=== PATIENT | female | born 1975 | race Caucasian/White ===

== ENCOUNTER 2021-07-01 09:42 | Emergency (ER) | payer BC, SELFPAY ==
--- NOTE | 2021-07-01 09:46 | ECG_ITS ---
Test Reason : palpitations Blood Pressure : / mmHG Vent. Rate : 089 BPM Atrial Rate : 089 BPM P-R Int : 138 ms QRS Dur : 082 ms QT Int : 368 ms P-R-T Axes : 054 015 023 degrees QTc Int : 447 ms Normal sinus rhythm Normal ECG No previous ECGs available Referred By: Generic ED Physician Electronically Signed By:HECTOR BANGURA MD
[2021-07-01 10:10] VITALS: BP 143/82; PULSE 96; RESP 18; TEMP 36.8; O2SAT 100; BMI 36.6
== END 2021-07-01 15:10 | disposition left against medical advice (07) ==
LOC: HO.ED 15:09
PROVIDERS: Emergency Provider Emergency Medicine; PCP Pediatrics
DX: R00.2 Palpitations (principal)
CPT/HCPCS: 93005; 99282; 99283

== ENCOUNTER 2022-07-26 12:01 | Emergency (ER) | payer BC, SELFPAY ==
--- NOTE | ~2022-07-26 | XR_ITS ---
EXAMINATION: XR CHEST CLINICAL INFORMATION: SOB COMPARISON: None TECHNIQUE: 2 views of the chest were obtained. FINDINGS: The lungs are well-expanded and clear of acute process. The heart size and pulmonary vascularity is normal. There is moderate ventral spondylosis dorsal spine. There is mild levoscoliosis. No aggressive lytic or sclerotic process seen. XR/XR chest 2V IMPRESSION: 1. No acute cardiopulmonary process seen. 2. Mild levoscoliosis.
[2022-07-26 12:07] VITALS: BP 157/98; PULSE 129; RESP 22; TEMP 36.4; O2SAT 100; BMI 35.4
--- NOTE | 2022-07-26 12:07 | ED_ITS ---
HPI - URI/Sore Throat General Chief Complaint: Asthma <Diamante Galloway NP - Last Filed: 07/26/22 12:11> Stated Complaint: Asthma sent by PCP <Diamante Galloway NP - Last Filed: 07/26/22 12:11> Time Seen by Provider: 07/26/22 12:14 <Diamante Galloway NP - Last Filed: 07/26/22 12:11> Source: patient <MARY ANNE Delgado - Last Filed: 07/26/22 14:26> Mode of arrival: ambulatory <MARY ANNE Delgado - Last Filed: 07/26/22 14:26> Limitations: no limitations <MARY ANNE Delgado - Last Filed: 07/26/22 14:26> History of Present Illness HPI Narrative: Patient is a 47 year old assigned female at with a history of asthma presenting to the emergency department today with wheezing. Patient states that over the last couple of days she has noticed that her wheezing has gotten worse. Patient states that she has used her inhaler at home but it hasn't helped. Patient denies any dizziness, lightheadedness, abdominal pain, nausea, vomiting, fever, chills, blurry vision, double vision, loss of vision, chest pain, back pain, night sweats, pain with urination, increased urinary frequency, increased urinary urgency, blood in her urine or stool, syncope or a near syncopal episode, recent trauma or falls, bowel incontinence, bladder incontinence, bowel retention, bladder retention, or any other complaints at this time. <MARY ANNE Delgado - Last Filed: 07/26/22 14:26> Pertinent past history: asthma <MARY ANNE Delgado - Last Filed: 07/26/22 14:26> Onset (ago): day(s) <MARY ANNE Delgado - Last Filed: 07/26/22 14:26> Consistency: intermittent <MARY ANNE Delgado - Last Filed: 07/26/22 14:26> Severity: mild <MARY ANNE Delgado - Last Filed: 07/26/22 14:26> Able to tolerate fluids by mouth: Yes <MARY ANNE Delgado - Last Filed: 07/26/22 14:26> Exacerbating factors: nothing <MARY ANNE Delgado - Last Filed: 07/26/22 14:26> Relieving factors: nothing <MARY ANNE Delgado - Last Filed: 07/26/22 14:26> Associated symptoms: denies other symptoms <MARY ANNE Delgado - Last Filed: 07/26/22 14:26> Treatments prior to arrival: other (inhaler) <MARY ANNE Delgado - Last Filed: 07/26/22 14:26> Related Data Home Medications: Previous Rx's Medication Instructions Recorded prednisone 20 mg tablet 20 mg PO DAILY 7 days #7 tabs 07/26/22 <Diamante Galloway NP - Last Filed: 07/26/22 12:11> Allergies/Adverse Reactions: Allergies Allergy/AdvReac Type Severity Reaction Status Date / Time seafood Allergy Difficulty Verified 07/01/21 10:09 Breathing <Diamante Galloway NP - Last Filed: 07/26/22 12:11> Review of Systems Constitutional: Constitutional: Reports no additional constitutional complaints, Denies chills, Denies fever(s) and Denies night sweats <MARY ANNE Delgado - Last Filed: 07/26/22 14:26> Eyes: Eyes: Reports no additional eye complaints, Denies blurry vision, Denies change in vision, Denies diplopia, Denies eye discharge, Denies loss of vision and Denies eye pain <MARY ANNE Delgado - Last Filed: 07/26/22 14:26> ENT: Denies dizziness <MARY ANNE Delgado - Last Filed: 07/26/22 14:26> Cardiovascular: Cardiovascular: Reports no additional cardiovascular complaints, Denies chest pain, Denies lightheadedness, Denies Loss of Consciousness and Denies dyspnea <MARY ANNE Delgado - Last Filed: 07/26/22 14:26> Respiratory: Respiratory: Reports no additional respiratory complaints, Denies dyspnea and Reports wheezing <MARY ANNE Delgado - Last Filed: 07/26/22 14:26> Gastrointestinal: Gastrointestinal: Reports no additional gastrointestinal complaints, Denies abdominal pain, Denies melena, Denies hematochezia, Denies change in bowel habits and Denies change in stool character <MARY ANNE Delgado - Last Filed: 07/26/22 14:26> Genitourinary: Genitourinary: Denies hematuria, Denies urinary frequency, Denies dysuria, Denies urinary incontinence, Denies urinary hesitancy and Denies urinary urgency <MARY ANNE Delgado - Last Filed: 07/26/22 14:26> Musculoskeletal: Musculoskeletal: Reports no additional musculoskeletal complaints, Denies numbness and Denies tingling <MARY ANNE Delgado - Last Filed: 07/26/22 14:26> Neurologic: Denies dizziness, Denies loss of vision, Denies numbness and Denies tingling <MARY ANNE Delgado - Last Filed: 07/26/22 14:26> Psychiatric: Psychiatric: Reports no additional psychiatric complaints <MARY ANNE Delgado - Last Filed: 07/26/22 14:26> Endocrine: Endocrine: Reports no additional endocrine complaints <MARY ANNE Delgado - Last Filed: 07/26/22 14:26> Hematologic/Lymphatic: Hematologic/Lymphatic: Reports no additional he matologic/lymphatic complaints <MARY ANNE Delgado - Last Filed: 07/26/22 14:26> Allergic/Immunologic: Allergic/Immunologic: Reports no additional allergic/immunologic complaints and Reports wheezing <MARY ANNE Delgado - Last Filed: 07/26/22 14:26> PENDING SALE TO [facility] Past Medical History Attestation statement: The following information was validated with the patient. <MARY ANNE Delgado - Last Filed: 07/26/22 14:26> Source: old records reviewed and nursing notes reviewed <MARY ANNE Delgado - Last Filed: 07/26/22 14:26> Medical History: Medical History Anxiety <Diamante Galloway NP - Last Filed: 07/26/22 12:11> Social History Social History: Social History Advance Directives: No Advance Directives Information Provided: No <Diamante Galloway NP - Last Filed: 07/26/22 12:11> Physical Exam Vital Signs: Vital Signs: Last Vital Signs Temp 97.5 F 07/26/22 12:07 Pulse 92 12/14/22 13:35 Resp 18 07/26/22 13:35 BP 157/98 H 07/26/22 12:07 Pulse Ox 100 07/26/22 12:07 O2 Del Method 07/26/22 12:07 BMI result Body Mass Index 35.4 <Diamante Galloway NP - Last Filed: 07/26/22 12:11> Vital Signs: Last Vital Signs Temp 97.5 F 07/26/22 12:07 Pulse 92 07/26/22 13:35 Resp 18 07/26/22 13:35 BP 157/98 H 07/26/22 12:07 Pulse Ox 100 07/26/22 12:07 O2 Del Method 07/26/22 12:07 BMI result Body Mass Index 35.4 <MARY ANNE Delgado - Last Filed: 07/26/22 14:26> Const: General: cooperative, no acute distress, alert and awake <MARY ANNE Delgado - Last Filed: 07/26/22 14:26> Nutritional Appearance: well nourished <MARY ANNE Delgado - Last Filed: 07/26/22 14:26> Orientation/consciousness: patient oriented x3 <MARY ANNE Delgado - Last Filed: 07/26/22 14:26> Limitations: no limitations <MARY ANNE Delgado - Last Filed: 07/26/22 14:26> HEENT: Head: Yes normal to inspection and Yes atraumatic <MARY ANNE Delgado - Last Filed: 07/26/22 14:26> Ears: hearing grossly normal bilaterally and external ears normal <MARY ANNE Delgado - Last Filed: 07/26/22 14:26> General nose exam: Normal external nose present, no nasal discharge noted and no epistaxis <MARY ANNE Delgado - Last Filed: 07/26/22 14:26> Face and sinus: Yes normal facial exam, No abrasion and No laceration <MARY ANNE Delgado - Last Filed: 07/26/22 14:26> Mouth: Normal oral and palatal mucosa present, no drooling and no muffled voice <MARY ANNE Delgado - Last Filed: 07/26/22 14:26> Eyes: General: appearance normal, both eyes and all related structures <Shabnam Huitron PA - Last Filed: 07/26/22 14:26> Periorbital: periorbital findings normal <Shabnam Huitron NM - Last Filed: 07/26/22 14:26> Eyelids: Yes eyelids normal <Shabnam Huitron PA - Last Filed: 07/26/22 14:26> Conjunctivae: conjunctivae normal <Shabnam Huitron NM - Last Filed: 07/26/22 14:26> Pupils: Equal, round and reactive pupils present <Shabnam Huitron PA - Last Filed: 07/26/22 14:26> EOM: EOMs intact bilaterally <Shabnam Huitron NM - Last Filed: 07/26/22 14:26> Neck: Neck: Yes normal visual inspection, Yes full ROM and Yes no lymphadenopathy <Shabnam Huitron NM - Last Filed: 07/26/22 14:26> Chest: Chest palpation & inspection: normal inspection of the chest <Shabnam Huitron NM - Last Filed: 07/26/22 14:26> Resp: Effort & Inspection: normal respiratory effort and able to speak in complete sentences <Shabnam Huitron NM - Last Filed: 07/26/22 14:26> Auscultation: wheezes throughout <Shabnam Huitron NM - Last Filed: 07/26/22 14:26> Cardio: Rate: regular rate <Shabnam Huitron NM - Last Filed: 07/26/22 14:26> Rhythm: regular rhythm <Shabnam Huitron NM - Last Filed: 07/26/22 14:26> GI: Inspection: Yes normal to inspection <Shabnam Huitron NM - Last F iled: 07/26/22 14:26> Palpation (GI): Soft to palpation, not firm, nontender and no guarding <Shabnam Huitron NM - Last Filed: 07/26/22 14:26> Neuro: General: patient oriented x3 and moves all extremities <Shabnam Huitorn NM - Last Filed: 07/26/22 14:26> Cranial nerves: Yes Equal, round and reactive pupils present <Shabnam Huitron NM - Last Filed: 07/26/22 14:26> Cognition (Neuro): normal cognition <MARY ANNE Delgado - Last Filed: 07/26/22 14:26> Motor exam (neuro): 5/5 motor strength present throughout <Shabnam HuitronMARY ANNE boyd - Last Filed: 07/26/22 14:26> Sensory Exam: Normal double simultaneous stimulation for sensation <Shabnam HuitronMARY ANNE boyd - Last Filed: 07/26/22 14:26> Coordination: [id number] test normal <MARY ANNE Delgado - Last Filed: 07/26/22 14:26> Extrem: General: Yes normal to inspection, Yes full ROM and Yes capillary refill normal <MARY ANNE Delgado - Last Filed: 07/26/22 14:26> Psych: Appearance: grossly normal <MARY ANNE Delgado - Last Filed: 07/26/22 14:26> Mental Status: mental status grossly normal <MARY ANNE Delgado - Last Filed: 07/26/22 14:26> Affect: normal affect <MARY ANNE Delgado - Last Filed: 07/26/22 14:26> Attitude: cooperative <MARY ANNE Delgado - Last Filed: 07/26/22 14:26> Thought process: Normal thought process present <MARY ANNE Delgado - Last Filed: 07/26/22 14:26> Thought content: Normal thought content present <MARY ANNE Delgado - Last Filed: 07/26/22 14:26> Insight: Good insight present (Psych) <MARY ANNE Delgado - Last Filed: 07/26/22 14:26> Course Course Course Narrative: This is a rapid medical exam. Deferred additional HPI, PE, ROS to primary provider. 47 yo female with past medical history of asthma here with asthma symptoms over the last few weeks worsened since 4am unrelieved with home albut son w/ complaints of cough, SOB, CP. Had COVID one month ago and has had cough since then. No fevers, chills, chest pain, leg swelling or pain. Seen at PCP and sent in for abnormal lung sounds, tachycardia, tachypnea. On arrival wheezing throughout. <Diamante Galloway NP - Last Filed: 07/26/22 12:11> Medications Administered Discontinued Medications Generic Name Dose Route Start Last Admin Trade Name Freq PRN Reason Stop Dose Admin Albuterol Sulfate 2 puff 07/26/22 12:35 07/26/22 12:38 Albuterol Sulfate 90 Mcg 8 Gm Inhaler INHALE 07/26/22 12:36 2 puff ONCE ONE Administration Albuterol/Ipratropium 3 ml 07/26/22 12:09 07/26/22 12:25 Albuterol/Iprat 2.5/0.5mg 3 Ml Ampul.Neb INHALE 07/26/22 12:10 3 ml ONCE ONE Administration Albuterol Sulfate 7.5 mg/ 0 mg 07/26/22 13:20 07/26/22 13:34 Albuterol/Ipratropium 3 ml INHALE 07/26/22 13:21 10 each ONCE ONE Administration Methylprednisolone Sodium Succinate 60 mg 07/26/22 12:15 07/26/22 12:36 Methylprednisolone Sod Succ 125 Mg/2 Ml Vial IM 07/26/22 12:16 60 mg ONCE ONE Administration <Diamante Galloway NP - Last Filed: 07/26/22 12:11> Medications Administered Discontinued Medications Generic Name Dose Route Start Last Admin Trade Name Freq PRN Reason Stop Dose Admin Albuterol Sulfate 2 puff 07/26/22 12:35 07/26/22 12:38 Albuterol Sulfate 90 Mcg 8 Gm Inhaler INHALE 07/26/22 12:36 2 puff ONCE ONE Administration Albuterol/Ipratropium 3 ml 07/26/22 12:09 07/26/22 12:25 Albuterol/Iprat 2.5/0.5mg 3 Ml Ampul.Neb INHALE 07/26/22 12:10 3 ml ONCE ONE Administration Albuterol Sulfate 7.5 mg/ 0 mg 07/26/22 13:20 07/26/22 13:34 Albuterol/Ipratropium 3 ml INHALE 07/26/22 13:21 10 each ONCE ONE Administration Methylprednisolone Sodium Succinate 60 mg 07/26/22 12:15 07/26/22 12:36 Methylprednisolone Sod Succ 125 Mg/2 Ml Vial IM 07/26/22 12:16 60 mg ONCE ONE Administration <MARY ANNE Delgado - Last Filed: 07/26/22 14:26> Medical Decision Making Medical Decision Making MDM Narrative: Patient is a 47 year old assigned female at with a history of asthma presenting to the emergency department today with wheezing. Patient's physical exam showed wheezing throughout. Patient's blood work was unremarkable. Patient's EKG was unremarkable. Patient's chest x-ray showed no acute process. I explained my physical exam findings as well as all test results to the patient. I answered all questions asked by the patient. Patient received solu-medrol and 2 breathing treatments while in the department which she stated helped her symptoms significantly. I stressed the importance of the patient taking her medication as prescribed. I stressed the importance of the patient following up with her primary care provider. I stressed the importance of the patient returning to the emergency department immediately if her symptoms were to worsen or if she were to develop any dizziness, shortness of breath, difficulty breathing, chest pain, blurry vision, loss of vision, nausea, vomiting, abdominal pain, fever, chills, back pain, or any other complaints. Patient verbalized agreement and understanding with this treatment plan and discharge. <MARY ANNE Delgado - Last Filed: 07/26/22 14:26> Differential Diagnosis Differential Diagnoses: The differential diagnosis associated with the presentation includes <MARY ANNE Delgado - Last Filed: 07/26/22 14:26> asthma exacerbation <MARY ANNE Delgado - Last Filed: 07/26/22 14:26> Lab Data MDM Lab Attestation statement: I reviewed the patient's lab results. <MARY ANNE Delgado - Last Filed: 07/26/22 14:26> Result Diagrams: : 07/26/22 12:22 07/26/22 12:22 <Diamante Galloway NP - Last Filed: 07/26/22 12:11> Labs: Lab Results 07/26/22 07/26/22 07/26/22 Range/Units 12:22 12:22 12:22 WBC 9.0 (4.8-10.8) X10*3/uL RBC 4.71 (4.20-5.50) X10*6/uL Hgb 13.4 (12.0-16.0) g/dl Hct 39.3 (37.0-47.0) % MCV 83.4 (80.0-98.0) fL MCH 28.5 (27.0-33.0) pg MCHC 34.1 (31.0-35.0) g/dl RDW 13.2 (11.0-16.0) % Plt Count 449 H (160-400) X10*3/uL MPV 8.8 L (9.4-12.3) fL Immature Gran % (Auto) 0.2 (0.0-0.4) % Neut % (Auto) 68.4 (45-73) % Lymph % (Auto) 21.8 (20-40) % [place] % (Auto) 5.3 (2-11) % Eos % (Auto) 3.9 (0-4) % Baso % (Auto) 0.4 (0-2) % Lymph # (Auto) 2.0 (1.2-4.9) X10*3/uL [place] # (Auto) 0.5 (0.1-1.2) X10*3/uL Eos # (Auto) 0.4 (0.0-0.4) X10*3/uL Baso # (Auto) 0.0 (0.0-0.2) X10*3/uL Abs Immat Gran (auto) 0.02 (0.00-0.03) X10*3/uL Absolute Neuts (auto) 6.2 (2.0-8.3) x10*3/uL Absolute Nucleated RBC 0.000 (0.0-0.012) X10*3/uL Nucleated RBC % (auto) 0.0 (0.0-0.2) /100WBC PT 13.4 H (10.0-13.1) SEC INR 1.2 H (0.9-1.1) Sodium 138 (135-145) mmol/L Potassium 4.1 (3.3-5.1) mmol/L Chloride 107 (96-108) mmol/L Carbon Dioxide 24 (22-29) mmol/L Anion Gap 11 L (12-20) BUN 13 (9-16) mg/dL Creatinine 0.76 (0.5-1.4) mg/dL Estim Creat Clear Calc 97.8 Estimated GFR > 60 Random Glucose 93 (60-115) mg/dL Calcium 9.4 (8.4-10.2) mg/dL Troponin I High Sens (<3.5-17.0) ng/L Influenza Type A (PCR) (Negative) Influenza Type B (PCR) (Negative) RSV RNA Qual (PCR) (Negative) SARS-CoV-2 RNA (RT-PCR) (Negative) 07/26/22 07/26/22 Range/Units 12:22 12:22 WBC (4.8-10.8) X10*3/uL RBC (4.20-5.50) X10*6/uL Hgb (12.0-16.0) g/dl Hct (37.0-47.0) % MCV (80.0-98.0) fL MCH (27.0-33.0) pg MCHC (31.0-35.0) g/dl RDW (11.0-16.0) % Plt Count (160-400) X10*3/uL MPV (9.4-12.3) fL Immature Gran % (Auto) (0.0-0.4) % Neut % (Auto) (45-73) % Lymph % (Auto) (20-40) % [place] % (Auto) (2-11) % Eos % (Auto) (0-4) % Baso % (Auto) (0-2) % Lymph # (Auto) (1.2-4.9) X10*3/uL [place] # (Auto) (0.1-1.2) X10*3/uL Eos # (Auto) (0.0-0.4) X10*3/uL Baso # (Auto) (0.0-0.2) X10*3/uL Abs Immat Gran (auto) (0.00-0.03) X10*3/uL Absolute Neuts (auto) (2.0-8.3) x10*3/uL Absolute Nucleated RBC (0.0-0.012) X10*3/uL Nucleated RBC % (auto) (0.0-0.2) /100WBC PT (10.0-13.1) SEC INR (0.9-1.1) Sodium (135-145) mmol/L Potassium (3.3-5.1) mmol/L Chloride (96-108) mmol/L Carbon Dioxide (22-29) mmol/L Anion Gap (12-20) BUN (9-16) mg/dL Creatinine (0.5-1.4) mg/dL Estim Creat Clear Calc Estimated GFR Random Glucose (60-115) mg/dL Calcium (8.4-10.2) mg/dL Troponin I High Sens < 3.5 (<3.5-17.0) ng/L Influenza Type A (PCR) NEGATIVE (Negative) Influenza Type B (PCR) NEGATIVE (Negative) RSV RNA Qual (PCR) NEGATIVE (Negative) SARS-CoV-2 RNA (RT-PCR) NEGATIVE (Negative) <Diamante Galloway [employer] - Last Filed: 07/26/22 12:11> Lab Results 07/26/22 07/26/22 07/26/22 Range/Units 12: 12: 12: WBC 9.0 (4.8-10.8) X10*3/uL RBC 4.71 (4.20-5.50) X10*6/uL Hgb 13.4 (12.0-16.0) g/dl Hct 39.3 (37.0-47.0) % MCV 83.4 (80.0-98.0) fL MCH 28.5 (27.0-33.0) pg MCHC 34.1 (31.0-35.0) g/dl RDW 13.2 (11.0-16.0) % Plt Count 449 H (160-400) X10*3/uL MPV 8.8 L (9.4-12.3) fL Immature Gran % (Auto) 0.2 (0.0-0.4) % Neut % (Auto) 68.4 (45-73) % Lymph % (Auto) 21.8 (20-40) % [place] % (Auto) 5.3 (2-11) % Eos % (Auto) 3.9 (0-4) % Baso % (Auto) 0.4 (0-2) % Lymph # (Auto) 2.0 (1.2-4.9) X10*3/uL [place] # (Auto) 0.5 (0.1-1.2) X10*3/uL Eos # (Auto) 0.4 (0.0-0.4) X10*3/uL Baso # (Auto) 0.0 (0.0-0.2) X10*3/uL Abs Immat Gran (auto) 0.02 (0.00-0.03) X10*3/uL Absolute Neuts (auto) 6.2 (2.0-8.3) x10*3/uL Absolute Nucleated RBC 0.000 (0.0-0.012) X10*3/uL Nucleated RBC % (auto) 0.0 (0.0-0.2) /100WBC PT 13.4 H (10.0-13.1) SEC INR 1.2 H (0.9-1.1) Sodium 138 (135-145) mmol/L Potassium 4.1 (3.3-5.1) mmol/L Chloride 107 (96-108) mmol/L Carbon Dioxide 24 (22-29) mmol/L Anion Gap 11 L (12-20) BUN 13 (9-16) mg/dL Creatinine 0.76 (0.5-1.4) mg/dL Estim Creat Clear Calc 97.8 Estimated GFR > 60 Random Glucose 93 (60-115) mg/dL Calcium 9.4 (8.4-10.2) mg/dL Troponin I High Sens (<3.5-17.0) ng/L Influenza Type A (PCR) (Negative) Influenza Type B (PCR) (Negative) RSV RNA Qual (PCR) (Negative) SARS-CoV-2 RNA (RT-PCR) (Negative) 07/26/22 07/26/22 Range/Units 12:22 12:22 WBC (4.8-10.8) X10*3/uL RBC (4.20-5.50) X10*6/uL Hgb (12.0-16.0) g/dl Hct (37.0-47.0) % MCV (80.0-98.0) fL MCH (27.0-33.0) pg MCHC (31.0-35.0) g/dl RDW (11.0-16.0) % Plt Count (160-400) X10*3/uL MPV (9.4-12.3) fL Immature Gran % (Auto) (0.0-0.4) % Neut % (Auto) (45-73) % Lymph % (Auto) (20-40) % [place] % (Auto) (2-11) % Eos % (Auto) (0-4) % Baso % (Auto) (0-2) % Lymph # (Auto) (1.2-4.9) X10*3/uL [place] # (Auto) (0.1-1.2) X10*3/uL Eos # (Auto) (0.0-0.4) X10*3/uL Baso # (Auto) (0.0-0.2) X10*3/uL Abs Immat Gran (auto) (0.00-0.03) X10*3/uL Absolute Neuts (auto) (2.0-8.3) x10*3/uL Absolute Nucleated RBC (0.0-0.012) X10*3/uL Nucleated RBC % (auto) (0.0-0.2) /100WBC PT (10.0-13.1) SEC INR (0.9-1.1) Sodium (135-145) mmol/L Potassium (3.3-5.1) mmol/L Chloride (96-108) mmol/L Carbon Dioxide (22-29) mmol/L Anion Gap (12-20) BUN (9-16) mg/dL Creatinine (0.5-1.4) mg/dL Estim Creat Clear Calc Estimated GFR Random Glucose (60-115) mg/dL Calcium (8.4-10.2) mg/dL Troponin I High Sens < 3.5 (<3.5-17.0) ng/L Influenza Type A (PCR) NEGATIVE (Negative) Influenza Type B (PCR) NEGATIVE (Negative) RSV RNA Qual (PCR) NEGATIVE (Negative) SARS-CoV-2 RNA (RT-PCR) NEGATIVE (Negative) <MARY ANNE Delgado - Last Filed: 07/26/22 14:26> Independent Interpretation I performed an independent interpretation of an: EKG <MARY ANNE Delgado - Last Filed: 07/26/22 14:26> Interpretation: Vent. Rate: 105 BPM ? ? Atrial Rate: 105 BPM P-R Int: 128 ms? QRS Dur: 080 ms QT Int: 352 ms ? ? ? P-R-T Axes: 043 013 031 degrees QTc Int: 465 ms ? Sinus tachycardia Otherwise normal ECG When compared with ECG of 01-JUL-2021 10:22, No significant change was found ? DD/ 1215 <MARY ANNE Delgado - Last Filed: 07/26/22 14:26> Radiology Impression Discussion of test interpretation with radiology: I have reviewed the radiologist's reading. <MARY ANNE Delgado - Last Filed: 07/26/22 14:26> Radiologist Impression: EXAMINATION: XR CHEST CLINICAL INFORMATION: SOB COMPARISON: None TECHNIQUE: 2 views of the chest were obtained. FINDINGS: The lungs are well-expanded and clear of acute process. The heart size and pulmonary vascularity is normal. There is moderate ventral spondylosis dorsal spine. There is mild levoscoliosis. No aggressive lytic or sclerotic process seen. XR/XR chest 2V IMPRESSION: 1.? No acute cardiopulmonary process seen. 2.? Mild levoscoliosis. Dictated By: Maged Londono MD Signed By: Electronically signed by Maged Londono MD 07/26/22 1403 <MARY ANNE Delgado - Last Filed: 07/26/22 14:26> External Record Review External record reviewed: Office record ([facility]ult [facility] [place]) <MARY ANNE Delgado - Last Filed: 07/26/22 14:26> Discharge Plan Discharge Clinical Impression: Asthma with acute exacerbation <Diamante Galloway NP - Last Filed: 07/26/22 12:11> Patient Disposition: Home, Self-Care <Diamante Galloway NP - Last Filed: 07/26/22 12:11> Instructions: Asthma (ED) <Diamante Galloway NP - Last Filed: 07/26/22 12:11> Additional Instructions: Follow up with your primary care provider. Return to the emergency department immediately if your symptoms worsen or if you develop any dizziness, shortness of breath, difficulty breathing, chest pain, blurry vision, loss of vision, nausea, vomiting, abdominal pain, fever, chills, back pain, or any other complaints. <Diamante Galloway NP - Last Filed: 07/26/22 12:11> Prescriptions: New prednisone 20 mg tablet 20 mg PO DAILY 7 Days Qty: 7 0RF <Diamante Galloway NP - Last Filed: 07/26/22 12:11> Referrals: [facility] [place] Family Medicine [Provider Group] (Call to establish and follow up with a primary care provider, if you already have a primary care provider, please follow up with them. ) [facility] [place] Primary Care, Evelyn [Provider Group] (Call to establish and follow up with a primary care provider, if you already have a primary care provider, please follow up with them. ) [facility] [place] Primary Care,Saba [Provider Group] (Call to establish and follow up with a primary care provider, if you already have a primary care provider, please follow up with them. ) <Diamante Galloway NP - Last Filed: 07/26/22 12:11> Interventions: ED Discharge Assessment Last Done: 07/26/22 14:00 <Diamante Galloway NP - Last Filed: 07/26/22 12:11> Discharge Date/Time: 07/26/22 14:00 <Diamante Galloway NP - Last Filed: 07/26/22 12:11> Print Language: Turkmen <Diamante Galloway NP - Last Filed: 07/26/22 12:11>
--- NOTE | 2022-07-26 12:09 | ECG_ITS ---
Test Reason : cp asthma Blood Pressure : / mmHG Vent. Rate : 105 BPM Atrial Rate : 105 BPM P-R Int : 128 ms QRS Dur : 080 ms QT Int : 352 ms P-R-T Axes : 043 013 031 degrees QTc Int : 465 ms Sinus tachycardia Otherwise normal ECG When compared with ECG of 01-JUL-2021 10:22, No significant change was found Referred By: Diamante Galloway Electronically Signed By:MAT SABILLON
[2022-07-26] MEDS: Albuterol/Iprat 2.5/0.5MG 3 ML AMPUL.NEB INHALE (12:25)
[2022-07-26 12:27] VITALS: PULSE 87; RESP 20; O2SAT 95
[2022-07-26 12:29] LABS: MANUAL DIFF FLAG NO
[2022-07-26 12:31] LABS: Basophils Percent Auto 0.4 % (0-2); Eosinophils Absolute Auto 0.4 X10*3/uL (0.0-0.4); Eosinophils Percent Auto 3.9 % (0-4); Hematocrit 39.3 % (37.0-47.0); Hemoglobin 13.4 g/dl (12.0-16.0); Imm Gran Abs Auto 0.02 X10*3/uL (0.00-0.03); Imm Gran Pct Auto 0.2 % (0.0-0.4); Lymphocytes Percent Auto 21.8 % (20-40); Mean Corpuscular HGB Conc 34.1 g/dl (31.0-35.0); Mean Corpuscular Hemoglobin 28.5 pg (27.0-33.0); Mean Corpuscular Volume 83.4 fL (80.0-98.0); Mean Platelet Volume 8.8 fL (9.4-12.3); Monocytes Absolute Auto 0.5 X10*3/uL (0.1-1.2); Monocytes Percent Auto 5.3 % (2-11); Neutrophils Absolute Auto 6.2 x10*3/uL (2.0-8.3); Neutrophils Percent Auto 68.4 % (45-73); Platelet Count 449 X10*3/uL (160-400); Red Blood Count 4.71 X10*6/uL (4.20-5.50); Red Cell Distribution Width 13.2 % (11.0-16.0)
[2022-07-26] MEDS: methylPREDNISolone Sod Succ 125 MG/2 ML VIAL 60 MG IM (12:36)
[2022-07-26] MEDS: Albuterol Sulfate 90 MCG 8 GM INHALER 2 PUFF INHALE (12:38)
[2022-07-26 12:41] LABS: INTERNATIONAL NORM RATIO 1.2 (0.9-1.1); Prothrombin Time 13.4 SEC (10.0-13.1)
[2022-07-26 12:46] LABS: Anion Gap 11 (12-20); Blood Urea Nitrogen 13 mg/dL (9-16); Calcium 9.4 mg/dL (8.4-10.2); Carbon Dioxide 24 mmol/L (22-29); Chloride 107 mmol/L (96-108); Creatinine Clr Calc Pharmacy 97.8; Estimated Glomerular Filt Rate > 60; Glucose Random 93 mg/dL (60-115); Potassium 4.1 mmol/L (3.3-5.1); Sodium 138 mmol/L (135-145)
[2022-07-26 12:54] LABS: Troponin-I High Sensitivity < 3.5 ng/L (<3.5-17.0)
[2022-07-26 13:08] LABS: Influenza A PCR NEGATIVE (Negative); Influenza B PCR NEGATIVE (Negative); Resp Syncy Virus RNA Qual PCR NEGATIVE (Negative); SARS COV2 PCR INHOUSE NEGATIVE (Negative)
[2022-07-26] MEDS: Albuterol Sulfate 7.5 MG, Albuterol/Iprat 2.5/0.5MG 3 ML 3 ML INHALE (13:34)
[2022-07-26 13:35] VITALS: PULSE 92; RESP 18; O2SAT 96
== END 2022-07-26 14:00 | disposition home or self-care (01) ==
PROVIDERS: Nurse Practitioner Family; Emergency Provider Student in an Organized Health Care Education/Training Program
DX: J45.901 Unspecified asthma with (acute) exacerbation (principal); Z20.822 Contact with and (suspected) exposure to COVID-19
CPT/HCPCS: 0241U; 71046; 80048; 84484; 85025; 85610; 93005; 94640; 96372; 99284; J2930